=== PATIENT | female | born 1955 ===

== ENCOUNTER 2023-03-30 13:00 | Observation (INO) ==
[2023-03-30] MEDS ORDERED: Lactated Ringers 1000 ml BAG 1,000 ML IV ONE (13:56)
[2023-03-30] MEDS ORDERED: Ondansetron 4 mg VIAL 2 MG/ML 2 ml VIAL IV ONE ×2 (13:56→23:11)
[2023-03-30 14:13] LABS: ABS Lymphocytes 0.6 10^3/uL (1.0-4.8); ABS Monocytes 0.3 10^3/uL (0.0-0.9); ABS Neutrophils 8.9 10^3/uL (1.5-7.6); ABS Nucleated RBC 0.01 10^3/ul; Hematocrit 39.5 % (35-45); Hemoglobin 13.7 g/dL (11.5-14.3); Mean Corpuscular Hemoglobin 30.7 pg (27-33); Mean Corpuscular Hgb Conc 34.8 g/dL (31-36); Mean Corpuscular Volume 88.4 fL (80-97); Mean Platelet Volume 8.7 fL (7.5-11.2); Nucleated Red Blood Cells % 0.1 %/100WBC (0.0-0.8); Platelet Count 222 10^3/uL (150-450); Red Blood Count 4.47 10^6/uL (3.63-4.92); Red Cell Distribution Width 13.8 % (12-17); White Blood Count 9.9 10^3/uL (3.8-11.8)
[2023-03-30] MEDS ORDERED: Thiamine 100 MG/ML 2 ml VIAL 100 MG, Folic Acid IV 1 MG, Multiple Vitamin IV ADULT 10 M... IV ONE (14:15)
[2023-03-30 14:32] LABS: ALT 11 U/L (7-52); AST 15 U/L (13-39); Albumin 4.2 g/dL (3.2-5.2); Albumin/Globulin Ratio 1.3 (1-3); Alkaline Phosphatase 76 U/L (35-149); Anion Gap 6 mmol/L (2-16); Blood Urea Nitrogen 17 mg/dL (6-24); CO2 Carbon Dioxide 26 mmol/L (22-32); Chloride 103 mmol/L (101-111); Creatinine, Serum 0.89 mg/dL (0.51-0.95); Globulin 3.2 g/dL (2-4); Glucose 127 mg/dL (70-100); Potassium 3.8 mmol/L (3.5-5.0); Sodium 135 mmol/L (135-145); Total Bilirubin 0.6 mg/dL (0.2-1.0); Total Protein 7.4 g/dL (6.4-8.9); eGFR CKD-EPI 71.5 (>60)
[2023-03-30] MEDS ORDERED: Iohexol 350 (CONTRAST) 500 ML MDV IV ONE (14:44)
[2023-03-30 19:27] LABS: Lipase < 10 U/L (11.0-82.0)
[2023-03-30] MEDS ORDERED: Morphine 4 MG/ML VIAL (1 ml) IV ONE (23:11)
[2023-03-31] MEDS ORDERED: Lactated Ringers 1000 ml BAG 1,000 ML IV ONE (08:09)
[2023-03-31] MEDS ORDERED: Ondansetron 4 mg VIAL 2 MG/ML 2 ml VIAL IV ONE ×2 (08:09→11:53)
[2023-03-31] MEDS ORDERED: Piperacillin/Tazobac 3.375 BAG 3.375 GM/100 ML BAG IV ONE (10:53)
[2023-03-31 11:32] LABS: ABS Lymphocytes 0.6 10^3/uL (1.0-4.8); ABS Monocytes 0.6 10^3/uL (0.0-0.9); ABS Neutrophils 8.3 10^3/uL (1.5-7.6); Eosinophil % 0.1 %; Hematocrit 37.1 % (35-45); Hemoglobin 12.8 g/dL (11.5-14.3); Lymphocyte % 6.4 %; Mean Corpuscular Hemoglobin 30.4 pg (27-33); Mean Corpuscular Hgb Conc 34.6 g/dL (31-36); Mean Corpuscular Volume 87.9 fL (80-97); Mean Platelet Volume 8.6 fL (7.5-11.2); Platelet Count 179 10^3/uL (150-450); Red Blood Count 4.22 10^6/uL (3.63-4.92); White Blood Count 9.5 10^3/uL (3.8-11.8)
[2023-03-31 11:52] LABS: Albumin 3.6 g/dL (3.2-5.2); Albumin/Globulin Ratio 1.2 (1-3); C Reactive Protein 163.08 mg/L (<8.01); Calcium 8.5 mg/dL (8.6-10.3); Creatinine, Serum 0.71 mg/dL (0.51-0.95); Globulin 2.9 g/dL (2-4); Potassium 3.6 mmol/L (3.5-5.0); Total Bilirubin 0.7 mg/dL (0.2-1.0); Total Protein 6.5 g/dL (6.4-8.9); eGFR CKD-EPI 93.7 (>60)
[2023-03-31 12:03] LABS: Direct Bilirubin 0.1 mg/dL (0.03-0.18); Indirect Bilirubin 0.6 mg/dL (0.3-1.0)
[2023-03-31] MEDS: Ondansetron 4 mg VIAL 2 MG/ML 2 ml VIAL IV PRN ×2 (15:38→22:42)
[2023-03-31] MEDS: NS 0.9% w/ 20 Meq KCL 1000 ml 1,000 ML IV SCH (15:40)
[2023-03-31] MEDS: HYDROmorphone 0.5 MG/0.5 ML SYRINGE IV SLOW PU PRN ×2 (18:13→22:43)
[2023-03-31] MEDS: Piperacillin/Tazobac 3.375 BAG 3.375 GM/100 ML BAG IV SCH (18:13)
[2023-04-01] MEDS: Piperacillin/Tazobac 3.375 BAG 3.375 GM/100 ML BAG IV SCH ×4 (01:55→17:49)
[2023-04-01] MEDS: NS 0.9% w/ 20 Meq KCL 1000 ml 1,000 ML IV SCH ×2 (02:10→08:57)
[2023-04-01 06:47] LABS: ABS Lymphocytes 0.9 10^3/uL (1.0-4.8); ABS Monocytes 0.6 10^3/uL (0.0-0.9); ABS Neutrophils 6.2 10^3/uL (1.5-7.6); ABS Nucleated RBC 0.02 10^3/ul; Eosinophil % 0.5 %; Hemoglobin 12.6 g/dL (11.5-14.3); Lymphocyte % 11.8 %; Mean Corpuscular Hemoglobin 30.4 pg (27-33); Mean Corpuscular Volume 89.4 fL (80-97); Mean Platelet Volume 9.1 fL (7.5-11.2); Nucleated Red Blood Cells % 0.2 %/100WBC (0.0-0.8); Platelet Count 202 10^3/uL (150-450); Red Blood Count 4.14 10^6/uL (3.63-4.92); Red Cell Distribution Width 14.2 % (12-17); White Blood Count 7.8 10^3/uL (3.8-11.8)
[2023-04-01 07:01] LABS: Albumin 3.5 g/dL (3.2-5.2); Albumin/Globulin Ratio 1.2 (1-3); Calcium 8.4 mg/dL (8.6-10.3); Creatinine, Serum 0.85 mg/dL (0.51-0.95); Globulin 2.9 g/dL (2-4); Potassium 3.8 mmol/L (3.5-5.0); Total Bilirubin 0.7 mg/dL (0.2-1.0); Total Protein 6.4 g/dL (6.4-8.9); eGFR CKD-EPI 75.5 (>60)
[2023-04-01] MEDS: Ondansetron 4 mg VIAL 2 MG/ML 2 ml VIAL IV PRN (08:58)
[2023-04-01] MEDS: HYDROmorphone 0.5 MG/0.5 ML SYRINGE IV SLOW PU PRN ×2 (12:43→20:57)
[2023-04-01] MEDS ORDERED: fentaNYL 100 mcg/2 ml 50 MCG/ML VIAL ONE ×2 (13:23→14:49)
[2023-04-01] MEDS ORDERED: Rocuronium 50 mg VIAL 10 mg/ml 5 ml VIAL (50 mg) ONE ×2 (13:23→15:09)
[2023-04-01] MEDS ORDERED: Midazolam 2 mg/2 ml VIAL 1 mg/ml 2 ml VIAL (2 mg) ONE (13:23)
[2023-04-01] MEDS ORDERED: Dexamethasone IV 4 MG/ML VIAL 1 ml VIAL ONE (13:33)
[2023-04-01] MEDS ORDERED: Ondansetron 4 mg VIAL 2 MG/ML 2 ml VIAL ONE ×2 (13:33→16:38)
[2023-04-01] MEDS ORDERED: Propofol 10 MG/ML 20 ML BTL ONE (13:33)
[2023-04-01] MEDS ORDERED: Lidocaine 2% PF 5 ML VIAL ONE (13:34)
[2023-04-01] MEDS ORDERED: Sevoflurane BOTTLE ONE (13:34)
[2023-04-01] MEDS ORDERED: Bupivacaine 0.25% SDV PF 10 ML VIAL INJ ONE (13:40)
[2023-04-01] MEDS ORDERED: Glycopyrrolate IV 0.2 MG/ML 1 ML VIAL ONE (14:47)
[2023-04-01] MEDS ORDERED: HYDROmorphone 0.5 MG/0.5 ML SYRINGE ONE (15:38)
[2023-04-01] MEDS ORDERED: Ondansetron 4 mg VIAL 2 MG/ML 2 ml VIAL IV PRN (16:13)
[2023-04-01] MEDS ORDERED: Naloxone 0.4 mg VIAL 0.4 mg/ml 1 ml VIAL IV PRN (16:13)
[2023-04-01] MEDS ORDERED: fentaNYL 100 mcg/2 ml 50 MCG/ML VIAL IV PRN (16:13)
[2023-04-01] MEDS ORDERED: HYDROmorphone 1 MG/1 ML SYRINGE IV PRN (16:13)
[2023-04-01] MEDS: oxyCODONE/Acetamin 5/325 mg TAB PO PRN (17:49)
[2023-04-02] MEDS: Piperacillin/Tazobac 3.375 BAG 3.375 GM/100 ML BAG IV SCH ×2 (01:35→09:43)
[2023-04-02] MEDS: oxyCODONE/Acetamin 5/325 mg TAB PO PRN ×2 (03:33→12:14)
[2023-04-02 10:15] VITALS: BP 122/84
== END 2023-04-02 14:30 | disposition home or self-care (01) ==
LOC: ED 13:00 → EDHOLD 13:00 → SSU 03-31 13:05
PROVIDERS: ADMIT Surgery; ATTEND Surgery